=== PATIENT | male | born 1945 | race Hispanic/Latino ===

== ENCOUNTER 2021-02-22 03:09 | Emergency (ER) | payer SELFPAY ==
[~2021-02-22] VITALS: Ht 165.1 cm; Wt 95.7 kg
[2021-02-22 03:40] LABS: CLARITY,URINE CLOUDY (CLEAR); COLOR,URINE YELLOW (YELLOW); KETONES,URINE NEGATIVE (NEGATIVE); LEUKOCYTE ESTERASE ,URINE SMALL (NEGATIVE); NITRITE,URINE NEGATIVE (NEGATIVE); PROTEIN,URINE DIPSTICK 1+ (NEGATIVE); URINE UROBILINOGEN 0.2 mg/dL (0.2 - 1)
[2021-02-22 03:45] LABS: BACTERIA,URINE FEW /HPF; EPITHELIAL CELLS,URINE RARE /LPF; RBC,URINE 21-50 /HPF (0-5)
[2021-02-22] MEDS ORDERED: CIPRO500 MG PO (03:57)
[2021-02-22 06:30] VITALS: BP 132/65
== END 2021-02-22 05:00 | disposition home or self-care (01) ==
LOC: ER 03:24
DX: N39.0 Urinary tract infection, site not specified (principal); R30.0 Dysuria; I10 Essential (primary) hypertension; E78.5 Hyperlipidemia, unspecified
CPT/HCPCS: 81001; 99283